=== PATIENT | male | born 1940 | race Caucasian/White ===

== ENCOUNTER 2019-09-21 18:26 | Emergency (ER) | payer OTHER ==
[~2019-09-21] VITALS: Ht 185.4 cm; Wt 65.4 kg
[2019-09-21 19:58] LABS: ABSOLUTE LYMPHOCYTES 0.6 thou/uL (0.8-5.3); ABSOLUTE MONOCYTES 0.5 thou/uL (0.0-1.2); ABSOLUTE NEUTROPHILS 3.1 thou/uL (1.6-8.1); BASOPHILS 1.1 %; EOSINOPHILS 0.6 %; HEMATOCRIT 30.9 % (42.0-52.0); HEMOGLOBIN 11.1 gm/dL (14.0-18.0); MCH 40.6 pg (26.0-34.0); MCHC 35.9 g/dL (28.0-37.0); MONOCYTES 11.8 %; MPV 7.3 fl. (7.2-11.1); NUCLEATED RBCS 0 /100WBC; PLATELET COUNT* 296 thou/uL (150-400); POLYS 73.5 %; RBC 2.74 mil/uL (4.50-6.00); RDW-CV 14.9 % (10.5-14.5); WBC 4.3 thou/uL (4.0-11.0)
[2019-09-21 20:07] LABS: CALCIUM 7.2 mg/dL (8.5-10.1); CREATININE 1.2 mg/dL (0.6-1.3); POTASSIUM 3.1 mmol/L (3.5-5.1)
[2019-09-21 20:08] LABS: APTT 26.1 Seconds (25.0-31.3); INR 1.2
[2019-09-21 20:11] LABS: ALBUMIN 2.7 g/dL (3.4-5.0); PHOSPHORUS* 2.7 mg/dL (2.5-4.9); TOTAL BILIRUBIN 1.3 mg/dL (<0.1-1.0); TOTAL PROTEIN 6.1 g/dL (6.4-8.2)
[2019-09-21 20:12] LABS: MAGNESIUM 0.9 mg/dL (1.8-2.4)
[2019-09-21 20:18] LABS: ACETAMINOPHEN < 2 ug/mL (10-30); ALCOHOL < 10 mg/dL (<10); SALICYLATE < 2.8 mg/dL (2.8-20.0)
[2019-09-21 20:44] LABS: LARGE PLATELETS OCCASIONAL; PLATELET ESTIMATE ADEQUATE
[2019-09-21 20:45] LABS: MACROCYTES 1+
[2019-09-21] MEDS ORDERED: NORCO 5-325 TA1 EAC1 PO (21:55)
[2019-09-21] MEDS ORDERED: LEVAQUIN 500 M500 M3 PO (21:55)
[2019-09-21] MEDS ORDERED: VENTOLIN HFA 1818 GM INH (21:55)
[2019-09-21 23:53] VITALS: BP 145/92
== END 2019-09-21 23:55 | disposition home or self-care (01) ==
LOC: M.ERS 18:26
PROVIDERS: Nurse Practitioner Family
DX: S32.040A Wedge compression fracture of fourth lumbar vertebra, initial encounter for closed fracture (principal); S10.83XA Contusion of other specified part of neck, initial encounter; J18.8 Other pneumonia, unspecified organism; E87.6 Hypokalemia; E83.42 Hypomagnesemia; F10.10 Alcohol abuse, uncomplicated; Y90.0 Blood alcohol level of less than 20 mg/100 ml; I10 Essential (primary) hypertension; G89.29 Other chronic pain; F17.210 Nicotine dependence, cigarettes, uncomplicated; Z88.0 Allergy status to penicillin; W18.39XA Other fall on same level, initial encounter; Y93.89 Activity, other specified; Y92.89 Other specified places as the place of occurrence of the external cause; Y99.8 Other external cause status

== ENCOUNTER 2019-09-29 20:06 | Inpatient (IN) | payer OTHER ==
[~2019-09-29] VITALS: Ht 185.4 cm; Wt 59.7 kg
[~2019-09-29 20:06] MED LIST: LEVAQUIN 500 M500 M3 PO; NORCO 5-325 TA1 EAC1 PO; VENTOLIN HFA 1818 GM INH
[2019-09-29 20:15] VITALS: BP 160/97
[2019-09-29 20:57] LABS: ABSOLUTE EOSINOPHILS 0.1 thou/uL (0.0-0.7); ABSOLUTE LYMPHOCYTES 0.6 thou/uL (0.8-5.3); ABSOLUTE MONOCYTES 0.6 thou/uL (0.0-1.2); BASOPHILS 0.6 %; EOSINOPHILS 1.1 %; HEMATOCRIT 36.2 % (42.0-52.0); HEMOGLOBIN 12.7 gm/dL (14.0-18.0); MCH 39.8 pg (26.0-34.0); MCV 113.7 fL (80.0-100.0); MONOCYTES 10.7 %; MPV 7.6 fl. (7.2-11.1); NUCLEATED RBCS 0 /100WBC; PLATELET COUNT* 366 thou/uL (150-400); POLYS 76.6 %; RBC 3.19 mil/uL (4.50-6.00); RDW-CV 14.9 % (10.5-14.5); WBC 5.2 thou/uL (4.0-11.0)
[2019-09-29 21:15] LABS: CALCIUM 8.2 mg/dL (8.5-10.1); CREATININE 1.3 mg/dL (0.6-1.3); POTASSIUM 4.2 mmol/L (3.5-5.1)
[2019-09-29 21:22] LABS: LARGE PLATELETS OCCASIONAL; PLATELET ESTIMATE ADEQUATE
[2019-09-29 21:25] LABS: ALBUMIN 2.4 g/dL (3.4-5.0); MAGNESIUM 1.7 mg/dL (1.8-2.4); TOTAL BILIRUBIN 0.9 mg/dL (<0.1-1.0); TOTAL PROTEIN 5.8 g/dL (6.4-8.2)
[2019-09-29 21:26] LABS: ANISOCYTOSIS Occasional
[2019-09-29 21:27] LABS: MACROCYTES 1+
[2019-09-29 23:16] VITALS: BP 179/101
[2019-09-30] VITALS: BP 169/112
[2019-09-30 02:48] LABS: INR 1.1; PROTIME 11.6 Seconds (9.20-11.50)
[2019-09-30 02:59] LABS: CALCIUM 7.8 mg/dL (8.5-10.1); PHOSPHORUS* 2.7 mg/dL (2.5-4.9)
[2019-09-30 06:10] VITALS: BP 122/71
[2019-09-30 09:57] VITALS: BP 147/83
--- NOTE | 2019-09-30 12:42 | EKG ---
[place] [address] ELECTROCARDIOGRAM REPORT Name: MANUEL HUNTER Room: [place] [address] 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: [facility] : 1940 Requested By: Vivek Bill Order Number: [id number] MD: Kush London Measurements Intervals [place] Rate: 112 P: 79 HI: 147 QRS: 86 QRSD: 80 T: 68 QT: 358 QTc: 489 Interpretive Statements Sinus tachycardia Atrial premature complex Borderline right axis deviation Low voltage, extremity and precordial leads Borderline prolonged QT interval No previous ECG available for comparison Electronically Signed On 09-30-2019 12:42:43 CDT by Kush London [email or web address] <ELECTRONICALLY SIGNED> By: Kush London MD, [facility] 09/30/19 1242 Kush London MD, [facility] /EPI
[2019-09-30 16:00] VITALS: BP 138/84
--- NOTE | 2019-09-30 16:16 | 2DMMODE ---
[place] [address] 2 D/M-MODE ECHOCARDIOGRAM Name: MANUEL HUNTER Room: [place] [address] ADM [place] R.#: [id number] Admission: 09/29/19 Attend Phys: Ruben Greco, Discharge: Date of : 40 Date of Service: 09/30/19 1616 Report #: [id number] THIS REPORT FOR: cc: Barrett Feliciano,Barrett Cuello,Kush Palacios MD [facility] ~ APPROVED REPORT Study performed: 09/30/2019 13:34:30 EXAM: Comprehensive 2D, Doppler, and color-flow Echocardiogram Patient Location: In-Patient Room #: [facility] Status: routine BSA: 1.89 HR: 113 bpm BP: 122/71 mmHg Rhythm: NSR Other Information Study Quality: Adequate Technically limited study due to off axis imaging. Indications Dyspnea Pulmonary Valve PV Peak Ziggy.: 1.27 m/s PV Peak Gr.: 6.46 mmHg Left Ventricle The left ventricle is normal size. There is normal LV segmental wall motion. There is normal left ventricular wall thickness. The left ventricular systolic function is normal. The left ventricular ejection fraction is within the normal range. LVEF is 65-70%. This study is not technically sufficient to allow evaluation of the LV diastolic function. Right Ventricle The right ventricle is normal size. The right ventricular systolic function is normal. Atria The left atrium size is normal. The right atrium size is [facility] [address] [place] [address] 2 D/M-MODE ECHOCARDIOGRAM Name: MANUEL HUNTER Room: [address] [place] .R.#: [id number] Admission: 09/29/19 Attend Phys: Ruben Greco, Discharge: Date of : 40 Date of Service: 09/30/19 1616 Report #: [id number] normal. Aortic Valve The aortic valve is normal in structure. No aortic regurgitation is present. There is no aortic valvular stenosis. Mitral Valve The mitral valve is normal in structure. There is no mitral valve regurgitation noted. No evidence of mitral valve stenosis. Tricuspid Valve The tricuspid valve is normal in structure. Unable to assess PA pressure. Trace tricuspid regurgitation. Pulmonic Valve Pulmonic valve is not well visualized. Great Vessels The aortic root is normal in size. IVC is normal in size and collapses >50% with inspiration. Pericardium There is no pericardial effusion. <Conclusion> The left ventricle is normal size. There is normal left ventricular wall thickness. The left ventricular systolic function is normal. The left ventricular ejection fraction is within the normal range. LVEF is 65-70%. The right ventricle is normal size. The left atrium size is normal. The aortic valve is normal in structure. The mitral valve is normal in structure. IVC is normal in size and collapses >50% with inspiration. There is no pericardial effusion. There is normal LV segmental wall motion. <ELECTRONICALLY SIGNED> By: Kush London MD, [facility] 09/30/19 1616 1616 1616 Kush London MD, FAC /INF
[2019-09-30 18:54] LABS: BE 1.5 mmol/L (-2 to +3); PCO2 38.9 mmHg (35.0-45.0); PO2 70.9 mmHg (75.0-100.0); pH 7.437 (7.340-7.450)
[2019-09-30 19:05] LABS: HEMATOCRIT 34.3 % (42.0-52.0); HEMOGLOBIN 12.1 gm/dL (14.0-18.0); MCH 39.8 pg (26.0-34.0); MCHC 35.1 g/dL (28.0-37.0); MCV 113.3 fL (80.0-100.0); MPV 7.4 fl. (7.2-11.1); RBC 3.03 mil/uL (4.50-6.00); RDW-CV 14.6 % (10.5-14.5); WBC 6.3 thou/uL (4.0-11.0)
[2019-09-30 19:09] LABS: CALCIUM 8.2 mg/dL (8.5-10.1); CREATININE 1.2 mg/dL (0.6-1.3); POTASSIUM 3.4 mmol/L (3.5-5.1)
[2019-09-30 20:00] VITALS: BP 132/87
[2019-09-30 23:34] VITALS: BP 142/96
[2019-10-01 01:07] LABS: URINE BILIRUBIN NEGATIVE (Negative); URINE BLOOD 3+ (Negative); URINE CLARITY CLEAR; URINE COLOR YELLOW; URINE GLUCOSE-RANDOM NEGATIVE (Negative); URINE KETONES NEGATIVE (Negative); URINE LEUKOCYTES-REFLEX NEGATIVE (Negative); URINE NITRITE-REFLEX NEGATIVE (Negative); URINE PROTEIN NEGATIVE (Negative); URINE UROBILINOGEN 0.2 E.U./dl (0.2-1.0)
[2019-10-01 01:13] LABS: AMORPHOUS URATES Moderate /LPF (None Seen); FINE GRANULAR CASTS 0-3 Few /LPF (None Seen); HYALINE CASTS 0-3 Few /LPF (None Seen); MUCUS 4-6 Moderate strn/LPF (None Seen); SQUAMOUS 0-3 Few /LPF (0-3); URINE RBC >20 Many /HPF (0-2); URINE WBC-REFLEX 6-15 Few /HPF (0-5)
[2019-10-01 01:16] LABS: AMP/METHAMP Negative (Negative); BARBITURATES Negative (Negative); BENZODIAZEPINES Negative (Negative); COCAINE Negative (Negative); METHADONE Negative (Negative); OPIATES POSITIVE (Negative); PCP Negative (Negative); THC Negative (Negative)
[2019-10-01 03:06] LABS: HEPATITIS B SURFACE AG Negative (Negative)
[2019-10-01 04:10] VITALS: BP 147/100
[2019-10-01 06:16] LABS: CALCIUM 8.5 mg/dL (8.5-10.1); CREATININE 1.1 mg/dL (0.6-1.3); MAGNESIUM 1.5 mg/dL (1.8-2.4); PHOSPHORUS* 3.1 mg/dL (2.5-4.9); POTASSIUM 3.6 mmol/L (3.5-5.1)
[2019-10-01 08:00] VITALS: BP 138/98
[2019-10-01 12:00] VITALS: BP 156/101
[2019-10-01] MEDS ORDERED: LOSARTAN-HCTZ1 EAC3 PO (15:18)
[2019-10-01] MEDS ORDERED: MAGNESIUM250 M1 PO (15:18)
[2019-10-01] MEDS ORDERED: POTASSIUM CHLO500 G1 PO (15:19)
[2019-10-01] MEDS ORDERED: ACETAMINOPHEN500 MG PO (15:20)
[2019-10-01] MEDS ORDERED: PROAIR HFA8.5 GM INH (15:20)
[2019-10-01 16:00] VITALS: BP 130/74
[2019-10-01 19:30] VITALS: BP 143/94
[2019-10-02] VITALS: BP 106/58
[2019-10-02 04:00] VITALS: BP 127/72
[2019-10-02 05:24] LABS: ALBUMIN 2.2 g/dL (3.4-5.0); CALCIUM 8.5 mg/dL (8.5-10.1); CREATININE 1.3 mg/dL (0.6-1.3); MAGNESIUM 2.2 mg/dL (1.8-2.4); POTASSIUM 3.4 mmol/L (3.5-5.1); TOTAL BILIRUBIN 0.8 mg/dL (<0.1-1.0); TOTAL PROTEIN 6.5 g/dL (6.4-8.2)
[2019-10-02 08:19] VITALS: BP 137/85
[2019-10-02 11:34] VITALS: BP 126/74
[2019-10-02 16:29] VITALS: BP 108/68
[2019-10-02 19:10] VITALS: BP 117/71
[2019-10-03] VITALS: BP 123/76
[2019-10-03 04:00] VITALS: BP 118/76
[2019-10-03 08:00] VITALS: BP 141/90
[2019-10-03 10:15] LABS: ALBUMIN 2.3 g/dL (3.4-5.0); CALCIUM 8.3 mg/dL (8.5-10.1); CREATININE 1.3 mg/dL (0.6-1.3); MAGNESIUM 2.2 mg/dL (1.8-2.4); PHOSPHORUS* 3.5 mg/dL (2.5-4.9); POTASSIUM 4.1 mmol/L (3.5-5.1)
[2019-10-03 12:55] VITALS: BP 135/77
[2019-10-03 17:03] VITALS: BP 146/88
[2019-10-03 20:00] VITALS: BP 103/70
[2019-10-04] VITALS: BP 153/66
[2019-10-04 04:00] VITALS: BP 135/85
[2019-10-04 08:21] VITALS: BP 132/79
[2019-10-04 11:50] VITALS: BP 131/81
[2019-10-04 16:40] VITALS: BP 143/97
[2019-10-04 20:00] VITALS: BP 115/67
[2019-10-05] VITALS: BP 138/86
[2019-10-05 04:00] VITALS: BP 141/84
[2019-10-05 08:00] VITALS: BP 139/98
[2019-10-05 12:00] VITALS: BP 168/105
[2019-10-05 16:00] VITALS: BP 156/97
[2019-10-05 20:00] VITALS: BP 123/81
[2019-10-06] VITALS: BP 134/90
[2019-10-06 04:00] VITALS: BP 112/74
[2019-10-06 04:36] LABS: ABSOLUTE LYMPHOCYTES 0.9 thou/uL (0.8-5.3); HEMOGLOBIN 12.4 gm/dL (14.0-18.0)
[2019-10-06 04:38] LABS: ABSOLUTE BASOPHILS 0.1 thou/uL (0.0-0.2); ABSOLUTE EOSINOPHILS 0.1 thou/uL (0.0-0.7); ABSOLUTE MONOCYTES 0.9 thou/uL (0.0-1.2); ABSOLUTE NEUTROPHILS 5.7 thou/uL (1.6-8.1); BASOPHILS 0.8 %; EOSINOPHILS 1.4 %; HEMATOCRIT 35.4 % (42.0-52.0); LYMPHOCYTES 11.5 %; MCH 38.7 pg (26.0-34.0); MCV 110.5 fL (80.0-100.0); MONOCYTES 11.6 %; MPV 8.4 fl. (7.2-11.1); NUCLEATED RBCS 0 /100WBC; PLATELET COUNT* 389 thou/uL (150-400); POLYS 74.7 %; RDW-CV 14.7 % (10.5-14.5); WBC 7.7 thou/uL (4.0-11.0)
[2019-10-06 04:50] LABS: CALCIUM 9.5 mg/dL (8.5-10.1); CREATININE 1.2 mg/dL (0.6-1.3)
[2019-10-06 04:54] LABS: POTASSIUM 2.9 mmol/L (3.5-5.1)
[2019-10-06 07:35] LABS: ANISOCYTOSIS 1+
[2019-10-06 08:00] VITALS: BP 140/98
[2019-10-06] MEDS ORDERED: PROTONIX40 M1 PO (12:18)
[2019-10-06] MEDS ORDERED: VITAMIN D325 MCG PO (12:18)
[2019-10-06] MEDS ORDERED: VITAMIN B-1100 M1 PO (12:18)
[2019-10-06] MEDS ORDERED: FOLIC ACID1 MG PO (12:18)
[2019-10-06] MEDS ORDERED: PRENATAL PO (12:18)
[2019-10-06] MEDS ORDERED: POTASSIUM20 PO (12:24)
[2019-10-06 16:25] VITALS: BP 124/88
[2019-10-06 19:50] VITALS: BP 135/83
[2019-10-07] VITALS: BP 141/92
[2019-10-07 07:26] VITALS: BP 137/85
[2019-10-07 12:18] VITALS: BP 133/79
[2019-10-07 16:15] VITALS: BP 127/88
[2019-10-07 20:00] VITALS: BP 144/107
[2019-10-07 23:56] VITALS: BP 148/90
[2019-10-08 08:00] VITALS: BP 123/86
[2019-10-08 16:09] VITALS: BP 137/90
[2019-10-08 21:00] VITALS: BP 156/95
[2019-10-09 10:05] VITALS: BP 115/82
[2019-10-09 10:25] VITALS: BP 115/82
[2019-10-09 15:52] VITALS: BP 120/78
[2019-10-09 20:45] VITALS: BP 132/78
[2019-10-10 08:00] VITALS: BP 133/82
[2019-10-10 15:00] VITALS: BP 111/81
[2019-10-10 20:49] VITALS: BP 124/81
[2019-10-11 10:11] VITALS: BP 128/81
[2019-10-11 12:47] VITALS: BP 115/82
[2019-10-11 14:06] VITALS: BP 115/82
[2019-10-15] MEDS ORDERED: NYAMYC15 GM TOP (13:45)
[2019-10-15] MEDS ORDERED: K-DUR 20 MEQ T20 MEQ PO (13:46)
[2019-10-15] MEDS ORDERED: PEPCID20 MG PO (13:46)
[2019-10-15] MEDS ORDERED: COZAAR 50 MG TA50 M1 PO (13:47)
== END 2019-10-11 14:06 | DRG 70 ==
LOC: M.ERS 20:06 → M.TBA-ER 22:00 → M.2W 23:27 → M.ORTHSURG 10-09 00:18
PROVIDERS: Emergency Medicine Emergency Medical Services; Family Medicine; ADMIT Internal Medicine; ATTEND Internal Medicine
DX: G93.41 Metabolic encephalopathy (principal); E43 Unspecified severe protein-calorie malnutrition; Z68.1 Body mass index [BMI] 19.9 or less, adult; R53.1 Weakness; E53.8 Deficiency of other specified B group vitamins; E83.42 Hypomagnesemia; G89.29 Other chronic pain; M54.9 Dorsalgia, unspecified; I10 Essential (primary) hypertension; F10.97 Alcohol use, unspecified with alcohol-induced persisting dementia; Y90.9 Presence of alcohol in blood, level not specified; M48.02 Spinal stenosis, cervical region; Z20.828 Contact with and (suspected) exposure to other viral communicable diseases; Z91.14 Patient's other noncompliance with medication regimen; Z79.899 Other long term (current) drug therapy; Z88.0 Allergy status to penicillin; Z87.891 Personal history of nicotine dependence